=== PATIENT | female | born 1965 | race Caucasian/White ===

== ENCOUNTER 2018-10-01 09:42 | Emergency (ER) | payer MEDICAID ==
[~2018-10-01] VITALS: Ht 157.5 cm; Wt 74.8 kg
--- NOTE | 2018-10-01 09:47 | NUR ---
PT AMBULATES TO BED 11
--- NOTE | 2018-10-01 09:50 | NUR ---
C/O MIDSTERNAL CHEST TIGHTNESS, NON RADIATING X 1 WK PROVOKED BY EXPOSURE TO A CAT ---PT STATES WHERE SHE IS RENTING A ROOM A CAT WAS BROUGHT INTO THE HOUSE CAUSING HER CHEST TIGHTNESS AND COUGH ---ADMITS SEEN BY HER PMD TUESDAY FOR SAME COMPLAINT ; RX CLARITIN THEN SEEN IN [facility] FOR SAME COMPLAINT AND COUGH CONGESTION HEADACHE AND SAME CAT EXPOSURE ---RETURNS TODAY FOR SAME COMPLAINT; NO TONGUE/ LIP SWELLING , FULL CLEAR SPEECH NO JVD NOTED HX--RECENT HTN DX, THYROID RX--CLARITIN, ?
[2018-10-01 09:55] VITALS: BP 171/106
[2018-10-01] MEDS ORDERED: ALBUTEROL 0.083% 2.5 MG/3 ML NEBU INH ONE (10:20)
[2018-10-01] MEDS ORDERED: methylPREDNISolone SS 125 MG/2 ML VIAL IVP ONE (10:20)
[2018-10-01] MEDS ORDERED: IPRATROPIUM 0.02% 0.5 MG/2.5 ML NEBU INH ONE (10:20)
[2018-10-01 10:49] LABS: BASOPHILS # (AUTO) 0.1 K/uL (0.00-0.22); BASOPHILS % (AUTO) 0.8 % (0.0-2.0); EOSINOPHILS # (AUTO) 0.7 K/uL (0-0.4); EOSINOPHILS % (AUTO) 8.2 % (0.0-4.0); HEMATOCRIT 39.2 % (36-48); HEMOGLOBIN 12.7 g/dL (12.0-16.0); LYMPHOCYTES # (AUTO) 1.6 K/uL (2.5-16.5); LYMPHOCYTES % (AUTO) 19.5 % (20.5-51.1); MEAN CORPUSCULAR HEMOGLOBIN 28 pg (27-31); MEAN CORPUSCULAR HGB CONC 33 g/dL (33-37); MEAN CORPUSCULAR VOLUME 85.4 fL (80-94); MONOCYTES # (AUTO) 0.6 K/uL (0.8-1.0); MONOCYTES % (AUTO) 7.2 % (1.7-9.3); NEUTROPHILS # (AUTO) 5.3 K/uL (1.8-7.7); NEUTROPHILS % (AUTO) 64.3 % (42.2-75.2); PLATELET COUNT (AUTO) 454 K/uL (140-450); RED BLOOD CELL COUNT(AUTO) 4.59 MIL/uL (4.20-5.40); RED CELL DISTRIBUTION WIDTH 12.9 % (11.6-13.7); WHITE BLOOD COUNT (AUTO) 8.2 K/uL (4.8-10.8)
[2018-10-01] MEDS ORDERED: LORazepam 1 MG TAB PO ONE (10:55)
--- NOTE | 2018-10-01 11:31 | NUR ---
Pt sleeping at this time, no c/o pain, on monitor, will continue to monitor.
[2018-10-01 11:40] LABS: ALBUMIN 3.2 g/dL (3.4-5.0); ANION GAP 9.7 (8-16); CREATININE 0.8 mg/dL (0.6-1.3); POTASSIUM 3.7 mmol/L (3.5-5.1); TOTAL BILIRUBIN 0.4 mg/dL (0.0-1.0)
[2018-10-01 11:56] LABS: PROTHROMBIN TIME 9.6 secs (10.8-13.4)
[2018-10-01 12:45] VITALS: BP 116/86
--- NOTE | 2018-10-01 12:45 | NUR ---
Patient discharged with v/s stable. Written and verbal after care instructions given and explained. Patient alert, oriented and verbalized understanding of instructions. Ambulatory with steady gait. All questions addressed prior to discharge. ID band removed. Patient advised to follow up with PMD. Rx of Promethazine, Fioricet given. Patient educated on indication of medication including possible reaction and side effects. Opportunity to ask questions provided and answered.
== END 2018-10-01 12:45 | disposition home or self-care (01) ==
LOC: MED 09:42
DX: J30.81 Allergic rhinitis due to animal (cat) (dog) hair and dander (principal); I10 Essential (primary) hypertension; J45.909 Unspecified asthma, uncomplicated; E11.9 Type 2 diabetes mellitus without complications; Z90.49 Acquired absence of other specified parts of digestive tract
CPT/HCPCS: 36415; 71045; 80053; 83880; 84484; 85025; 85379; 85610; 85730; 93005; 94640; 96374; 99284; J2930; J7613; J7644; Q0092

== ENCOUNTER 2019-08-03 13:42 | Emergency (ER) | payer MEDICAID | END 2019-08-03 14:20 | disposition home or self-care (01) | LOC: MED 13:42 | DX: H81.10 Benign paroxysmal vertigo, unspecified ear (principal); E11.9 Type 2 diabetes mellitus without complications | CPT/HCPCS: 99282 ==